=== PATIENT | female | born 1950 | race Caucasian/White ===

== ENCOUNTER 2017-06-27 21:46 | Inpatient (IN) | payer BC, OTHER ==
[~2017-06-27] VITALS: Ht 163.8 cm; Wt 105.9 kg
[~2017-06-27 21:46] MED LIST: ASPIR 8181 M1 PO; Aspirin Chewable PO; COZAAR50 MG PO; CRESTOR5 MG PO; CYANOCOBALAM1000 MCG PO; EFFEXOR XR75 MG PO; HYDROCHLOROTH12.5 M1 PO; IRON325 M1 PO; NEXIUM40 MG PO; VITAMIN D PO; VITAMIN D32000 UNI1 PO
[2017-06-28 05:55] VITALS: BP 136/72
[2017-06-28 10:51] VITALS: BP 127/68
[2017-06-28 12:40] VITALS: BP 129/61
[2017-06-28 14:45] VITALS: BP 141/65
[2017-06-28 16:45] VITALS: BP 137/65
[2017-06-28 19:58] VITALS: BP 118/65
[2017-06-29 00:23] VITALS: BP 114/56
[2017-06-29 03:51] VITALS: BP 107/67
[2017-06-29 06:11] LABS: HEMATOCRIT 37.5 % (36.0-46.0); MCV 98.4 FL (83-99)
[2017-06-29 08:11] VITALS: BP 114/54
[2017-06-29 11:57] VITALS: BP 114/56
[2017-06-29 16:13] VITALS: BP 108/53
[2017-06-29 20:22] VITALS: BP 120/56
[2017-06-30 00:05] VITALS: BP 140/64
[2017-06-30 04:00] VITALS: BP 118/55
[2017-06-30 06:52] LABS: HEMATOCRIT 30.5 % (36.0-46.0); MCV 95.9 FL (83-99)
[2017-06-30 07:56] VITALS: BP 125/60
[2017-06-30] MEDS ORDERED: CELECOXIB200 MG PO (09:52)
[2017-06-30] MEDS ORDERED: HYDROCODON-ACE1 EAC7 PO (09:52)
[2017-06-30] MEDS ORDERED: ELIQUIS2.5 MG PO (09:52)
[2017-06-30 11:46] VITALS: BP 114/56
== END 2017-06-30 14:05 | DRG 470 ==
LOC: ENRESERV 21:46 → 2SOUTH 06-28 05:22 → 3WEST 06-28 10:25 → 2SOUTH 06-28 12:15 → SDC 06-28 13:06 → EDSTATUS 06-28 13:07 → 2SOUTH 06-28 13:11 → 3WEST 06-30 14:05
PROVIDERS: Orthopaedic Surgery
PROC: 0SRC0J9 Replacement of Right Knee Joint with Synthetic Substitute, Cemented, Open Approach (ICD-10-PCS; principal; 2017-06-28)
DX: M17.11 Unilateral primary osteoarthritis, right knee (principal); D62 Acute posthemorrhagic anemia; G89.29 Other chronic pain; E66.9 Obesity, unspecified; I10 Essential (primary) hypertension; F41.9 Anxiety disorder, unspecified; E55.9 Vitamin D deficiency, unspecified; K80.20 Calculus of gallbladder without cholecystitis without obstruction; E27.9 Disorder of adrenal gland, unspecified; E78.5 Hyperlipidemia, unspecified; H04.123 Dry eye syndrome of bilateral lacrimal glands; Z68.39 Body mass index [BMI] 39.0-39.9, adult; Z79.82 Long term (current) use of aspirin; Z88.0 Allergy status to penicillin; Z82.61 Family history of arthritis; Z80.9 Family history of malignant neoplasm, unspecified
CPT/HCPCS: 85014; 85018; C1713; J0131; J0690; J1100; J1885; J2175; J2250; J2405; J2795; J3010; J7050; Q0175

== ENCOUNTER 2017-10-17 03:46 | Observation (INO) | payer BC, OTHER ==
[~2017-10-17] VITALS: Ht 167.6 cm; Wt 107.5 kg
[~2017-10-17 03:46] MED LIST changes: +CELECOXIB200 MG PO; +ELIQUIS2.5 MG PO; +HYDROCODON-ACE1 EAC7 PO
[2017-10-17 04:58] LABS: BASOPHIL (%) 0.5 % (0-1); EOSINOPHIL (%) 2.7 % (0-5); EOSINOPHIL COUNT 0.1 K/uL (0-0.3); HEMATOCRIT 38.5 % (36.0-46.0); HEMOGLOBIN 12.4 G/DL (11.9-15.5); IMMATURE GRANULOCYTE (%) 0.3 % (0.0-0.7); LYMPHOCYTE (%) 32.1 % (15-42); LYMPHOCYTE COUNT 1.2 K/uL (1.0-2.8); MCH 30.2 PG (29.0-34.0); MCHC 32.2 G/DL (30.0-36.0); MCV 93.9 FL (83-99); MONOCYTE (%) 7.4 % (3-12); MONOCYTE COUNT 0.3 K/uL (0-0.8); NEUTROPHIL COUNT 2.1 K/uL (1.8-6.4); PLATELET COUNT 229 K/uL (156-360); RBC DIS.WIDTH-CV 13.2 % (11.8-14.6); RBC DIS.WIDTH-SD 45.4 % (39-53); WHITE BLOOD COUNT 3.7 K/uL (4.1-10.2)
[2017-10-17 05:08] LABS: ALBUMIN 3.4 g/dL (3.2-4.8); CHLORIDE 107 mEq/L (99-109); POTASSIUM 3.6 mEq/L (3.7-5.4); SODIUM 142 mEq/L (136-147)
[2017-10-17 05:10] LABS: GLUCOSE 117 mg/dL (70-99); TOTAL PROTEIN 6.3 g/dL (6.4-8.3)
[2017-10-17 05:12] LABS: TOTAL BILIRUBIN 0.4 mg/dL (0.0-1.0)
[2017-10-17 05:14] LABS: ALKALINE PHOSPHATASE 132 IU/L (3-129); CREATININE 0.7 mg/dL (0.6-1.3); GFR ESTIMATE (CALCULATED) > 59 mL/min/
[2017-10-17 05:15] LABS: UREA NITROGEN (BUN) 20 mg/dL (9-23)
[2017-10-17 05:16] LABS: AST (GOT) 15 IU/L (2-34)
[2017-10-17 05:17] LABS: ALT (GPT) 10 IU/L (3-49)
[2017-10-17 05:20] LABS: TROP-I INTERPRETATION NEGATIVE; TROPONIN-I < 0.01 ng/mL (0.0-0.30)
[2017-10-17 11:09] VITALS: BP 132/74
[2017-10-17 11:56] LABS: TROP-I INTERPRETATION NEGATIVE; TROPONIN-I < 0.01 ng/mL (0.0-0.30)
[2017-10-17 16:19] VITALS: BP 126/62
[2017-10-17 18:15] LABS: TROP-I INTERPRETATION NEGATIVE; TROPONIN-I < 0.01 ng/mL (0.0-0.30)
[2017-10-17] MEDS ORDERED: MELOXICAM15 MG PO (20:00)
[2017-10-17 20:04] VITALS: BP 103/56
[2017-10-17 23:56] VITALS: BP 103/45
[2017-10-18 08:00] VITALS: BP 119/66
[2017-10-18] MEDS ORDERED: ANTIVERT25 MG PO (09:44)
== END 2017-10-18 10:52 | disposition home or self-care (01) ==
LOC: EME 03:46 → ENRESERV 09:23 → EDOF 09:23 → ENRESERV 09:38 → 5WEST 10:50 → ENPENDDIS 10-18 → 5WEST 10-18 10:52
PROVIDERS: Emergency Medicine; Internal Medicine
DX: R42 Dizziness and giddiness (principal); R27.0 Ataxia, unspecified; R11.0 Nausea; I65.01 Occlusion and stenosis of right vertebral artery; M25.561 Pain in right knee; E78.5 Hyperlipidemia, unspecified; I10 Essential (primary) hypertension; Z96.651 Presence of right artificial knee joint; Z88.0 Allergy status to penicillin; Z88.8 Allergy status to other drugs, medicaments and biological substances
CPT/HCPCS: 70450; 70549; 70551; 80053; 84484; 85025; 93005; 99281; 99285; G0378; G8978 GP CH; G8979 GP CH; G8980 GP CH; G8987 GO CH; G8988 GO CH; G8989 GO CH; J1650; J2060; J7030